=== PATIENT | female | born 1980 | race American Indian/Alaskan Native ===

== ENCOUNTER 2017-07-13 22:53 | Emergency (ER) | payer MEDICAID ==
[2017-07-13] MEDS ORDERED: PROVENTIL IH ONE ×3 (23:05→23:54)
--- NOTE | 2017-07-14 00:30 | Emergency Department Report ---
ED Shortness of Breath HPI - General Chief Complaint: Dyspnea/Respdistress Stated Complaint: SOB/16 WEEKS PREG Time Seen by Provider: 07/13/17 23:25 Source: patient Mode of arrival: Ambulatory Limitations: No Limitations - History of Present Illness Initial Comments: Patient is a 36-year-old at 14 weeks female past medical history of asthma she states that she is short of breath today. She states that her shortness of breath started about 2 hours ago her symptoms are moderate there worse with exertion and better with rest. She states that she used some of her inhalers but hasn't helped her asthma. Patient states that her shortness of breath feels like her asthma. Patient denies having any leg swelling. Patient denies having any vaginal discharge or any vaginal bleeding. - Related Data Previous Rx's Medication Instructions Recorded Last Taken Type ALBUTEROL NEB's [Proventil 0.083% 2.5 mg IH Q4-6H PRN #60 ml 06/17/14 Unknown Rx NEBS] Fluticasone/Czlvwfdmpx55/21Mcg 1 puff IH BID #1 puff 06/17/14 Unknown Rx [Advair HFA 45/21 mcg] Prednisone [Prednisone 10 mg 10 mg PO .TAPER #1 tab.ds.pk 06/17/14 Unknown Rx (6-Day Pack, 21 Tabs)] Promethazine [Phenergan] 25 mg PO Q6H PRN #10 tablet 06/17/14 Unknown Rx HYDROcodone/APAP 10-325 [[place] 1 each PO Q4-6H PRN #20 tablet 12/01/15 Unknown Rx 10/325] Ibuprofen [Motrin] 600 mg PO Q8H PRN #21 tablet 06/08/16 Unknown Rx Oxycodone HCl/Acetaminophen 1 each PO Q6HR PRN #20 tablet 06/08/16 Unknown Rx [Percocet 7.5/325 mg] ALBUTEROL Inhaler [ProAir HFA 2 puff IH QID PRN #1 inhalation 06/23/16 Unknown Rx Inhaler] ALBUTEROL NEB's [Proventil 0.083% 2.5 mg IH Q4H #1 box 06/23/16 Unknown Rx NEBS] Azithromycin [Zithromax] 250 mg PO QAM #6 tablet 06/23/16 Unknown Rx Ipratropium [Atrovent] 0.5 mg IH Q4H #1 box 06/23/16 Unknown Rx methylPREDNISolone [Medrol] 4 mg PO QAM #1 pack 06/23/16 Unknown Rx ALBUTEROL Inhaler [ProAir HFA 2 puff IH QID PRN #1 inhalation 07/14/17 Unknown Rx Inhaler] predniSONE [Deltasone] 20 mg PO BID #10 tablet 07/14/17 Unknown Rx Allergies Allergy/AdvReac Type Severity Reaction Status Date / Time amoxicillin Allergy Hives Verified 05/01/16 11:39 Penicillins Allergy Hives Verified 05/01/16 11:39 ED Review of Systems ROS: Stated complaint: SOB/16 WEEKS PREG Other details as noted in HPI Constitutional: denies: chills, fever Eyes: denies: eye pain, eye discharge, vision change ENT: denies: ear pain, throat pain Respiratory: shortness of breath, SOB at rest. denies: cough, wheezing Cardiovascular: denies: chest pain, palpitations Endocrine: no symptoms reported Gastrointestinal: denies: abdominal pain, nausea, diarrhea Genitourinary: denies: urgency, dysuria, discharge Musculoskeletal: denies: back pain, joint swelling, arthralgia Skin: denies: rash, lesions Neurological: denies: headache, weakness, paresthesias Psychiatric: denies: anxiety, depression Hematological/Lymphatic: denies: easy bleeding, easy bruising ED Past Medical Hx - Past Medical History Previous Medical History?: Yes Hx Hypertension: No Hx Psychiatric Treatment: No Hx Asthma: Yes Additional medical history: BRONCHITIS - Surgical History Past Surgical History?: Yes Additional Surgical History: - Social History Smoking Status: Former Smoker Substance Use Type: None - Medications Home Medications: Home Medications Medication Instructions Recorded Confirmed Last Taken Type ALBUTEROL NEB's [Proventil 0.083% 2.5 mg IH Q4-6H PRN #60 ml 06/17/14 06/22/16 Unknown Rx NEBS] Fluticasone/Uzhknbumom20/21Mcg 1 puff IH BID #1 puff 06/17/14 06/22/16 Unknown Rx [Advair HFA 45/21 mcg] Prednisone [Prednisone 10 mg 10 mg PO .TAPER #1 tab.ds.pk 06/17/14 06/22/16 Unknown Rx (6-Day Pack, 21 Tabs)] Promethazine [Phenergan] 25 mg PO Q6H PRN #10 tablet 06/17/14 06/22/16 Unknown Rx HYDROcodone/APAP 10-325 [[place] 1 each PO Q4-6H PRN #20 tablet 12/01/15 06/22/16 Unknown Rx 10/325] Ibuprofen [Motrin] 600 mg PO Q8H PRN #21 tablet 06/08/16 06/22/16 Unknown Rx Oxycodone HCl/Acetaminophen 1 each PO Q6HR PRN #20 tablet 06/08/16 06/22/16 Unknown Rx [Percocet 7.5/325 mg] ALBUTEROL Inhaler [ProAir HFA 2 puff IH QID PRN #1 inhalation 06/23/16 Unknown Rx Inhaler] ALBUTEROL NEB's [Proventil 0.083% 2.5 mg IH Q4H #1 box 06/23/16 Unknown Rx NEBS] Azithromycin [Zithromax] 250 mg PO QAM #6 tablet 06/23/16 Unknown Rx Ipratropium [Atrovent] 0.5 mg IH Q4H #1 box 06/23/16 Unknown Rx methylPREDNISolone [Medrol] 4 mg PO QAM #1 pack 06/23/16 Unknown Rx ALBUTEROL Inhaler [ProAir HFA 2 puff IH QID PRN #1 inhalation 07/14/17 Unknown Rx Inhaler] predniSONE [Deltasone] 20 mg PO BID #10 tablet 07/14/17 Unknown Rx ED Physical Exam - General Limitations: No Limitations General appearance: alert, in no apparent distress - Head Head exam: Present: atraumatic, normocephalic - Eye Eye exam: Present: normal appearance - ENT ENT exam: Present: mucous membranes moist - Neck Neck exam: Present: normal inspection - Respiratory Respiratory exam: Present: wheezes (wheezing bilaterally). Absent: respiratory distress - Cardiovascular Cardiovascular Exam: Present: regular rate, normal rhythm. Absent: systolic murmur, diastolic murmur, rubs, gallop - GI/Abdominal GI/Abdominal exam: Present: soft, normal bowel sounds - Extremities Exam Extremities exam: Present: normal inspection - Back Exam Back exam: Present: normal inspection - Neurological Exam Neurological exam: Present: alert, oriented X3, CN II-XII intact - Psychiatric Psychiatric exam: Present: normal affect, normal mood - Skin Skin exam: Present: warm, dry, intact, normal color. Absent: rash ED Course Vital Signs 07/13/17 07/13/17 07/13/17 22:59 23:04 23:10 Temperature 98.8 F Pulse Rate 121 H 112 H 113 H Pulse Rate [ Posterior Bilateral] Respiratory 32 H 29 H 25 H Rate Respiratory Rate [Posterior Bilateral] Blood Pressure 116/78 Blood Pressure 136/85 [Right] O2 Sat by Pulse 94 99 99 Oximetry 07/13/17 07/13/17 07/13/17 23:13 23:15 23:20 Temperature 98.7 F Pulse Rate 129 H Pulse Rate [ Posterior Bilateral] Respiratory 26 H 20 Rate Respiratory Rate [Posterior Bilateral] Blood Pressure 125/71 Blood Pressure [Right] O2 Sat by Pulse 99 100 Oximetry 07/13/17 07/13/17 07/13/17 23:30 23:40 23:50 Temperature Pulse Rate 127 H 111 H 120 H Pulse Rate [ Posterior Bilateral] Respiratory 28 H 30 H 27 H Rate Respiratory Rate [Posterior Bilateral] Blood Pressure 125/71 131/86 131/86 Blood Pressure [Right] O2 Sat by Pulse 98 99 99 Oximetry 07/14/17 07/14/17 07/14/17 00:00 00:10 00:20 Temperature Pulse Rate 114 H 107 H 141 H Pulse Rate [ Posterior Bilateral] Respiratory 26 H 25 H 29 H Rate Respiratory Rate [Posterior Bilateral] Blood Pressure 120/92 120/92 126/63 Blood Pressure [Right] O2 Sat by Pulse 97 96 Oximetry 07/14/17 07/14/17 07/14/17 00:30 00:34 00:35 Temperature Pulse Rate 114 H 128 H Pulse Rate [ 118 H Posterior Bilateral] Respiratory 23 22 Rate Respiratory 18 Rate [Posterior Bilateral] Blood Pressure 124/72 124/72 Blood Pressure [Right] O2 Sat by Pulse 100 99 Oximetry 07/14/17 07/14/17 07/14/17 00:40 00:50 01:00 Temperature Pulse Rate 116 H 111 H 112 H Pulse Rate [ Posterior Bilateral] Respiratory 22 25 H 28 H Rate Respiratory Rate [Posterior Bilateral] Blood Pressure 124/72 109/76 114/77 Blood Pressure [Right] O2 Sat by Pulse 99 100 98 Oximetry 07/14/17 07/14/17 07/14/17 01:10 01:20 01:30 Temperature Pulse Rate 117 H 99 H 112 H Pulse Rate [ Posterior Bilateral] Respiratory 25 H 26 H 29 H Rate Respiratory Rate [Posterior Bilateral] Blood Pressure 114/77 128/71 126/74 Blood Pressure [Right] O2 Sat by Pulse 99 100 100 Oximetry 07/14/17 07/14/17 01:40 01:50 Temperature Pulse Rate 98 H 99 H Pulse Rate [ Posterior Bilateral] Respiratory 26 H 26 H Rate Respiratory Rate [Posterior Bilateral] Blood Pressure 126/74 129/77 Blood Pressure [Right] O2 Sat by Pulse 100 100 Oximetry - Reevaluation(s) Reevaluation #1: 07/14/17 02:34 Patient is feeling better after albuterol nebulizing treatment. I will send patient home with albuterol inhaler and prednisone. ED Medical Decision Making - Lab Data Result diagrams: 07/14/17 01:28 07/14/17 01:28 Lab Results 07/14/17 07/14/17 Range/Units 01:28 01:28 WBC 8.6 (4.5-11.0) K/mm3 RBC 4.54 (3.65-5.03) M/mm3 Hgb 10.9 (10.1-14.3) gm/dl Hct 33.1 (30.3-42.9) % MCV 73 L (79-97) fl MCH 24 L (28-32) pg MCHC 33 (30-34) % RDW 19.9 H (13.2-15.2) % Plt Count 175 (140-440) K/mm3 Lymph % (Auto) 25.7 (13.4-35.0) % [place] % (Auto) 9.9 H (0.0-7.3) % Eos % (Auto) 6.2 H (0.0-4.3) % Baso % (Auto) 0.3 (0.0-1.8) % Lymph # 2.2 (1.2-5.4) K/mm3 [place] # 0.8 (0.0-0.8) K/mm3 Eos # 0.5 H (0.0-0.4) K/mm3 Baso # 0.0 (0.0-0.1) K/mm3 Seg Neutrophils % 57.9 (40.0-70.0) % Seg Neutrophils # 5.0 (1.8-7.7) K/mm3 Sodium 139 (137-145) mmol/L Potassium 3.6 (3.6-5.0) mmol/L Chloride 100.7 (98-107) mmol/L Carbon Dioxide 23 (22-30) mmol/L Anion Gap 19 mmol/L BUN 8 (7-17) mg/dL Creatinine 0.5 L (0.7-1.2) mg/dL Estimated GFR > 60 ml/min BUN/Creatinine Ratio 16.00 % Glucose 112 H (65-100) mg/dL Calcium 8.7 (8.4-10.2) mg/dL - Medical Decision Making Chief medical diagnosis: Asthma exacerbation Differential multiple diagnosis: Bronchitis, allergic rhinitis, metabolic abnormality I will give patient albuterol and methylprednisolone IV I will also get CBC and CMP. Patient is feeling better also and patient home with prescription for albuterol and prednisone. Additional verbal discharge instructions were given. Critical care attestation.: If time is entered above; I have spent that time in minutes in the direct care of this critically ill patient, excluding procedure time. ED Disposition Clinical Impression: Asthma exacerbation Qualifiers: Asthma severity: moderate persistent Qualified Code(s): J45.41 - Moderate persistent asthma with (acute) exacerbation Disposition: DC-01 TO HOME OR SELFCARE Is pt being admited?: No Does the pt Need Aspirin: No Condition: Stable Instructions: Asthma (ED) Prescriptions: ALBUTEROL Inhaler [ProAir HFA Inhaler] 2 puff IH QID PRN #1 inhalation PRN Reason: Shortness Of Breath predniSONE [Deltasone] 20 mg PO BID #10 tablet Referrals: PRIMARY CARE, [Primary Care Provider] - 3-5 Days Time of Disposition: 02:37
[2017-07-14 01:51] LABS: Basophils % (Auto) 0.3 % (0.0-1.8); Eosinophils % (Auto) 6.2 % (0.0-4.3); Hematocrit 33.1 % (30.3-42.9); Hemoglobin 10.9 gm/dl (10.1-14.3); Mean Corpuscular HGB Conc 33 % (30-34); Mean Corpuscular Hemoglobin 24 pg (28-32); Mean Corpuscular Volume 73 fl (79-97); Platelet Count 175 K/mm3 (140-440); Red Blood Count 4.54 M/mm3 (3.65-5.03); Red Cell Distribution Width 19.9 % (13.2-15.2); White Blood Count 8.6 K/mm3 (4.5-11.0)
[2017-07-14] MEDS: PROVENTIL IH ONE ×2 (02:04→02:05)
[2017-07-14 02:05] LABS: Anion Gap 19 mmol/L; Blood Urea Nitrogen 8 mg/dL (7-17); Calcium 8.7 mg/dL (8.4-10.2); Carbon Dioxide 23 mmol/L (22-30); Chloride 100.7 mmol/L (98-107); Glucose 112 mg/dL (65-100); Potassium 3.6 mmol/L (3.6-5.0); Sodium 139 mmol/L (137-145)
[2017-07-14 02:53] VITALS: BP 130/75
== END 2017-07-14 02:54 | disposition home or self-care (01) ==
LOC: ED 22:53
DX: J45.41 Moderate persistent asthma with (acute) exacerbation (principal); Z87.891 Personal history of nicotine dependence; Z88.1 Allergy status to other antibiotic agents; Z88.0 Allergy status to penicillin
CPT/HCPCS: 36415; 80048; 85025; 94644; 96374; 99284; J2930

== ENCOUNTER 2017-07-31 12:27 | Emergency (ER) | payer MEDICAID ==
[2017-07-31] MEDS ORDERED: DUONEB *Not for PRN Use IH ONE ×2 (12:37→13:14)
[2017-07-31] MEDS ORDERED: PROVENTIL IH ONE (15:35)
--- NOTE | 2017-07-31 17:22 | Emergency Department Report ---
HPI - General Chief Complaint: Adult Asthma Time Seen by Provider: 07/31/17 15:35 - HPI HPI: 36-year-old -[place] female at 17 weeks is reviewed today with wheezing. Patient states she has long-standing history of asthma for which she takes albuterol inhalers, nebulizers at home. She has been refusing really bad for 2 days worse today. Patient's symptoms are accompanied by cough, runny nose but no vomiting or fever. Patient gets most of her care at [facility] and follows up there also for her [facility] [employer] needs. AB patient received albuterol inhaler and symptoms are much improved. Patient recently was on steroid pack, and Z-Sukumar for bronchitis. ED Past Medical Hx - Past Medical History Hx Hypertension: No Hx Psychiatric Treatment: No Hx Asthma: Yes Additional medical history: BRONCHITIS - Surgical History Additional Surgical History: - Family History Family history: hypertension - Social History Smoking Status: Never Smoker Substance Use Type: None - Medications Home Medications: Home Medications Medication Instructions Recorded Confirmed Last Taken Type Fluticasone/Iwjvnmiwsg92/21Mcg 1 puff IH BID #1 puff 06/17/14 07/31/17 07/31/17 Rx [Advair HFA 45/21 mcg] ALBUTEROL NEB's [Proventil 0.083% 2.5 mg IH Q4H #1 box 06/23/16 07/31/17 Rx NEBS] Ipratropium [Atrovent] 0.5 mg IH Q4H #1 box 06/23/16 07/31/17 07/31/17 Rx ALBUTEROL Inhaler [ProAir HFA 2 puff IH QID PRN #1 inhalation 07/14/17 07/31/17 07/31/17 Rx Inhaler] Fluticasone/Salmeterol [Advair 0 each INHALATION BID #1 blst.w.dev 07/31/17 Unknown Rx 250-50 Diskus] ED Review of Systems ROS: Stated complaint: ASTHMA Other details as noted in HPI Comment: All other systems reviewed and negative Eyes: as per HPI ENT: throat pain, congestion Respiratory: cough, shortness of breath, wheezing Cardiovascular: as per HPI Physical Exam - Physical Exam Vital Signs: Vital Signs 07/31/17 07/31/17 07/31/17 12:32 15:02 15:41 Temperature 98.1 F Pulse Rate 111 H 85 Pulse Rate [ 89 Posterior Bilateral Throughout] Respiratory 26 H 20 Rate Respiratory 20 Rate [Posterior Bilateral Throughout] Blood Pressure 135/81 Blood Pressure 137/60 [Right] O2 Sat by Pulse 93 96 Oximetry 07/31/17 16:18 Temperature Pulse Rate Pulse Rate [ 112 H Posterior Bilateral Throughout] Respiratory Rate Respiratory 20 Rate [Posterior Bilateral Throughout] Blood Pressure Blood Pressure [Right] O2 Sat by Pulse Oximetry Physical Exam: Physical Exam: - General Limitations: No Limitations General appearance: alert, in no apparent distress - Head Head exam: Present: atraumatic, normocephalic - Eye Eye exam: Present: normal appearance - ENT ENT exam: Present: mucous membranes moist - Neck Neck exam: Present: normal inspection - Respiratory Respiratory exam: Present: Expiratory wheezing on both lung Absent: respiratory distress - Cardiovascular Cardiovascular Exam: Present: normal rhythm. Absent: systolic murmur, diastolic murmur, rubs, gallop - GI/Abdominal GI/Abdominal exam: Present: soft, normal bowel sounds - Extremities Exam Extremities exam: Present: normal inspection - Back Exam Back exam: Present: normal inspection - Neurological Exam Neurological exam: Present: alert, oriented X3, - Skin Skin exam: Present: warm, dry, intact, normal color. Absent: rash ED Course Vital Signs 07/31/17 07/31/17 07/31/17 12:32 15:02 15:41 Temperature 98.1 F Pulse Rate 111 H 85 Pulse Rate [ 89 Posterior Bilateral Throughout] Respiratory 26 H 20 Rate Respiratory 20 Rate [Posterior Bilateral Throughout] Blood Pressure 135/81 Blood Pressure 137/60 [Right] O2 Sat by Pulse 93 96 Oximetry 07/31/17 16:18 Temperature Pulse Rate Pulse Rate [ 112 H Posterior Bilateral Throughout] Respiratory Rate Respiratory 20 Rate [Posterior Bilateral Throughout] Blood Pressure Blood Pressure [Right] O2 Sat by Pulse Oximetry Critical care attestation.: If time is entered above; I have spent that time in minutes in the direct care of this critically ill patient, excluding procedure time. ED Disposition Clinical Impression: Asthma exacerbation Disposition: DC-01 TO HOME OR SELFCARE Is pt being admited?: No Does the pt Need Aspirin: No Condition: Stable Prescriptions: Fluticasone/Salmeterol [Advair 250-50 Diskus] 0 each INHALATION BID #1 blst.w.dev Referrals: PRIMARY CARE, [Primary Care Provider] - 3-5 Days
[2017-07-31 18:50] VITALS: BP 149/84
== END 2017-07-31 18:50 | disposition home or self-care (01) ==
LOC: ED 12:27
DX: O99.512 Diseases of the respiratory system complicating pregnancy, second trimester (principal); J45.901 Unspecified asthma with (acute) exacerbation; Z88.0 Allergy status to penicillin; Z88.1 Allergy status to other antibiotic agents
CPT/HCPCS: 94640; 96374; 99283; J2930

== ENCOUNTER 2017-11-18 14:39 | Emergency (ER) | payer MEDICAID ==
[2017-11-18 15:11] VITALS: BP 114/68
== END 2017-11-18 23:30 | disposition left against medical advice (07) ==
LOC: ED 14:39
DX: R07.9 Chest pain, unspecified (principal); Z53.21 Procedure and treatment not carried out due to patient leaving prior to being seen by health care provider
CPT/HCPCS: 93005; 93010

== ENCOUNTER 2018-04-13 02:05 | Emergency (ER) | payer MEDICAID ==
[2018-04-13] MEDS ORDERED: DUONEB *Not for PRN Use IH ONE (02:24)
[2018-04-13] MEDS ORDERED: TYLENOL ONE (03:01)
[2018-04-13] MEDS ORDERED: TYLENOL PO ONE (03:04)
[2018-04-13] MEDS ORDERED: PROVENTIL IH ONE (03:16)
[2018-04-13] MEDS ORDERED: ATROVENT IH ONE (03:16)
[2018-04-13] MEDS ORDERED: MAGNESIUM SULFATE 2GM/50ML 2 GM/50 ML BAG IV ONE (03:22)
--- NOTE | 2018-04-13 03:22 | Emergency Department Report ---
Chief Complaint: Adult Asthma Stated Complaint: , SOB Time Seen by Provider: 04/13/18 03:20 - HPI History of Present Illness: Patient anterior arch area reports that she is having an asthma exacerbation. She takes albuterol for asthma and said that she had never been intubated but has been in emergency room within the last 3 months for asthma exacerbation. Patient reports that she is in early and has not started care. She reports wheezing and coughing and shortness of breath. Patient received DuoNeb 1 treatment without any relief of wheezing. Vision denies any abdominal or back pain. Denies any vaginal bleeding or discharge. - ROS Review of Systems: All systems are negative unless stated in HPI above. Positive wheezing, positive shortness of breath positive cough . Negative fever or chills, negative nausea or vomiting. Negative abdominal pain, negative vaginal bleeding , negative urinary burning frequency or urgency and negative back pain. - Exam Vital Signs: Vital Signs 04/13/18 04/13/18 04/13/18 02:23 03:06 03:09 Temperature 98.3 F Pulse Rate 107 H 103 H Respiratory 24 18 20 Rate Blood Pressure 174/102 Blood Pressure 131/94 [Left] O2 Sat by Pulse 95 Oximetry Physical Exam: Gen.: This is a 37-year-old female that is in mild distress from asthma exacerbation. Lungs: Patient with widespread wheezing throughout lung fisher, dry cough and increased work of breathing. No chest wall tenderness CV: Tachycardic, regular rhythm, no murmur MSE screening note: Focused history and physical exam performed. Due to findings the following was ordered: ED Medical Decision Making - Medical Decision Making Patient was screened by [facility] in triage area and to go to the main side for management by medical doctor. Patient she is already received DuoNeb 1 without any relief of asthma symptoms and albuterol 5 mg with Atrovent 0.5 mg to be given. I collaborated with Dr. Francois who wants patient to have Solu- Medrol 125 milligrams IV, and patient also to start an magnesium IV. tests ordered. Patient is stable at present and to be seen by M.D. ED Disposition for MSE Condition: Stable
--- NOTE | 2018-04-13 08:38 | Emergency Department Report ---
ED Asthma HPI - General Chief Complaint: Adult Asthma Stated Complaint: , SOB Time Seen by Provider: 04/13/18 03:20 Source: patient Mode of arrival: Ambulatory Limitations: No Limitations - History of Present Illness Initial Comments: This is a 37-year-old female nontoxic, well nourished in appearance, no acute signs of distress presents to the ED with c/o of asthma exacerbation. Patient stated that throughout the day or wheezing increased and she became short of breath. Patient denies any hemoptysis, fever, chills, nausea, vomiting, chest pain, short of breath, headache, stiff neck, numbness or tingling. Patient denies any recent travels, long car rides or recent hospital stays. Patient denies any calf pain or calf tenderness. Patient denies any cough. Patient states allergies to penicillin. Past medical history includes asthma. MD Complaint: "asthma attack", shortness of breath, wheezing -: days(s) (1) Asthma History: childhood onset Severity: mild Context: none known Associated Symptoms: none - Related Data Current Asthma Therapy: none Previous Rx's Medication Instructions Recorded Last Taken Type Fluticasone/Huvjkunmqi63/21Mcg 1 puff IH BID #1 puff 06/17/14 07/31/17 Rx [Advair HFA 45/21 mcg] ALBUTEROL NEB's [Proventil 0.083% 2.5 mg IH Q4H #1 box 06/23/16 07/31/17 Rx NEBS] Ipratropium [Atrovent] 0.5 mg IH Q4H #1 box 06/23/16 07/31/17 Rx ALBUTEROL Inhaler [ProAir HFA 2 puff IH QID PRN #1 inhalation 07/14/17 07/31/17 Rx Inhaler] Fluticasone/Salmeterol [Advair 0 each INHALATION BID #1 blst.w.dev 07/31/17 Unknown Rx 250-50 Diskus] ALBUTEROL Inhaler [ProAir HFA 2 puff IH QID PRN #1 inhalation 04/13/18 Unknown Rx Inhaler] Prednisone [predniSONE 10 mg 10 mg PO .TAPER #1 tab.ds.pk 04/13/18 Unknown Rx (6-Day Pack, 21 Tabs)] Allergies Allergy/AdvReac Type Severity Reaction Status Date / Time amoxicillin Allergy Hives Verified 05/01/16 11:39 Penicillins Allergy Hives Verified 05/01/16 11:39 ED Review of Systems ROS: Stated complaint: , SOB Other details as noted in HPI Constitutional: denies: chills, fever Eyes: denies: eye pain, eye discharge, vision change ENT: denies: ear pain, throat pain Respiratory: shortness of breath, wheezing. denies: cough Cardiovascular: denies: chest pain, palpitations Endocrine: no symptoms reported Gastrointestinal: denies: abdominal pain, nausea, diarrhea Genitourinary: denies: urgency, dysuria, discharge Musculoskeletal: denies: back pain, joint swelling, arthralgia Skin: denies: rash, lesions Neurological: denies: headache, weakness, paresthesias Psychiatric: denies: anxiety, depression Hematological/Lymphatic: denies: easy bleeding, easy bruising ED Past Medical Hx - Past Medical History Previous Medical History?: Yes Hx Hypertension: No Hx Psychiatric Treatment: No Hx Asthma: Yes Additional medical history: BRONCHITIS - Surgical History Past Surgical History?: No Additional Surgical History: - Social History Smoking Status: Never Smoker Substance Use Type: None - Medications Home Medications: Home Medications Medication Instructions Recorded Confirmed Last Taken Type Fluticasone/Hixgsdqurh47/21Mcg 1 puff IH BID #1 puff 06/17/14 07/31/17 07/31/17 Rx [Advair HFA 45/21 mcg] ALBUTEROL NEB's [Proventil 0.083% 2.5 mg IH Q4H #1 box 06/23/16 07/31/17 Rx NEBS] Ipratropium [Atrovent] 0.5 mg IH Q4H #1 box 06/23/16 07/31/17 07/31/17 Rx ALBUTEROL Inhaler [ProAir HFA 2 puff IH QID PRN #1 inhalation 07/14/17 07/31/17 07/31/17 Rx Inhaler] Fluticasone/Salmeterol [Advair 0 each INHALATION BID #1 blst.w.dev 07/31/17 Unknown Rx 250-50 Diskus] ALBUTEROL Inhaler [ProAir HFA 2 puff IH QID PRN #1 inhalation 04/13/18 Unknown Rx Inhaler] Prednisone [predniSONE 10 mg 10 mg PO .TAPER #1 tab.ds.pk 04/13/18 Unknown Rx (6-Day Pack, 21 Tabs)] ED Physical Exam - General Limitations: No Limitations General appearance: alert, in no apparent distress - Head Head exam: Present: atraumatic, normocephalic - Eye Eye exam: Present: normal appearance Pupils: Present: normal accommodation - ENT ENT exam: Present: normal exam, mucous membranes moist - Neck Neck exam: Present: normal inspection, full ROM. Absent: tenderness, meningismus, lymphadenopathy - Respiratory Respiratory exam: Present: normal lung sounds bilaterally, wheezes (bilateral upper and lower lobes). Absent: respiratory distress, rales, rhonchi, stridor, chest wall tenderness, accessory muscle use, decreased breath sounds, prolonged expiratory - Cardiovascular Cardiovascular Exam: Present: regular rate, normal rhythm, tachycardia. Absent : irregular rhythm, systolic murmur, diastolic murmur, rubs, gallop - GI/Abdominal GI/Abdominal exam: Present: soft, normal bowel sounds. Absent: distended, tenderness, guarding, rebound, rigid, diminished bowel sounds - Rectal Rectal exam: Present: deferred - Extremities Exam Extremities exam: Present: normal inspection, full ROM, normal capillary refill - Back Exam Back exam: Present: normal inspection, full ROM - Neurological Exam Neurological exam: Present: alert, oriented X3, normal gait - Psychiatric Psychiatric exam: Present: normal affect, normal mood - Skin Skin exam: Present: warm, dry, intact, normal color. Absent: rash ED Course Vital Signs 04/13/18 04/13/18 04/13/18 02:23 03:06 03:09 Temperature 98.3 F Pulse Rate 107 H 103 H Pulse Rate [ Posterior Bilateral Throughout] Respiratory 24 18 20 Rate Respiratory Rate [Posterior Bilateral Throughout] Blood Pressure 174/102 Blood Pressure 131/94 [Left] O2 Sat by Pulse 95 Oximetry 04/13/18 04/13/18 04/13/18 03:38 03:55 04:06 Temperature Pulse Rate Pulse Rate [ 104 H 101 H Posterior Bilateral Throughout] Respiratory 18 Rate Respiratory 22 20 Rate [Posterior Bilateral Throughout] Blood Pressure Blood Pressure [Left] O2 Sat by Pulse Oximetry - Reevaluation(s) Reevaluation #1: 04/13/18 08:36 Patient is speaking in full sentences with no signs of distress noted. ED Medical Decision Making - Medical Decision Making This is a 37-year-old female that presents with asthma exacerbation. Patient is stable and was examined by me. I ordered a chest x-ray but patient refused and stated she has to go home because she works at 10 AM. Prior to my interview the patient did receive breathing treatments,magnesium sulfate IV and steroids in the ED which patient the symptoms has decreased. But upon examination the patient still does have mild wheezing upon auscultation posttreatment. I educated and instructed patient of my concerns about symptoms and worsening and I encouraged patient to have further workup and possible admission if not resolved the patient refused and signed the AMA form. Patient is discharged with albuterol and prednisone. Patient was referred to Follow-up with a primary care doctor in 3-5 days or if symptoms worsen and continue return to emergency room as soon as possible. At time of signing AMA, the patient does not seem toxic or ill in appearance. No acute signs of distress noted. Patient agrees to treatment plan of care. No further questions noted by the patient. This chart is dictated with using [employer] Critical care attestation.: If time is entered above; I have spent that time in minutes in the direct care of this critically ill patient, excluding procedure time. ED Disposition Clinical Impression: Asthma exacerbation Qualifiers: Asthma severity: mild Asthma persistence: intermittent Qualified Code(s): J45.21 - Mild intermittent asthma with (acute) exacerbation Disposition: 07 LEFT AGAINST MED ADVICE Is pt being admited?: No Does the pt Need Aspirin: No Condition: Stable Instructions: Asthma (ED), Prednisone (By mouth), Albuterol (By breathing) Additional Instructions: Follow-up with a primary care doctor in 3-5 days or if symptoms worsen and continue return to emergency room as soon as possible. Prescriptions: ALBUTEROL Inhaler [ProAir HFA Inhaler] 2 puff IH QID PRN #1 inhalation PRN Reason: Shortness Of Breath Prednisone [predniSONE 10 mg (6-Day Pack, 21 Tabs)] 10 mg PO .TAPER #1 tab.ds.pk Referrals: PRIMARY CARE, [Primary Care Provider] - 3-5 Days MINESH BAXTER MD [Staff Physician] - 3-5 Days [facility] [Outside] - 3-5 Days [facility] [Outside] - 3-5 Days Forms: Work/School Release Form(ED)
[2018-04-13 08:50] VITALS: BP 132/84
== END 2018-04-13 08:50 | disposition left against medical advice (07) ==
LOC: ED 02:05
DX: J45.901 Unspecified asthma with (acute) exacerbation (principal); Z88.1 Allergy status to other antibiotic agents; Z88.0 Allergy status to penicillin
CPT/HCPCS: 36415; 84703; 94640; 96365; 96375; 99284; J2930; J3475

== ENCOUNTER 2018-06-18 23:24 | Emergency (ER) | payer MEDICAID ==
[2018-06-18] MEDS ORDERED: DUONEB *Not for PRN Use IH ONE ×2 (23:27→23:46)
[2018-06-18] MEDS ORDERED: TYLENOL PO ONE (23:47)
[2018-06-19 00:18] LABS: HCG Qualitative,Urine Negative (Negative)
--- NOTE | 2018-06-19 00:43 | XRay Report ---
FINAL REPORT EXAM: XR CHEST ROUTINE 2V HISTORY: cough TECHNIQUE: PA and lateral views of the chest were submitted. FINDINGS: The heart size and mediastinum appear normal. The lungs are clear. Pleural fluid is not seen. The skeletal structures reveal a mild dextroscoliosis of the thoracic spine. IMPRESSION: No acute cardiopulmonary process.
[2018-06-19] MEDS ORDERED: MAGNESIUM SULFATE 2GM/50ML 2 GM/50 ML BAG IV ONE (01:22)
--- NOTE | 2018-06-19 01:30 | Emergency Department Report ---
ED Asthma HPI - General Chief Complaint: Adult Asthma Stated Complaint: ASTHMA Time Seen by Provider: 06/19/18 01:26 Source: patient Mode of arrival: Ambulatory Limitations: No Limitations - History of Present Illness Initial Comments: Patient is a 37-year-old female that presents with asthma symptoms since Wednesday. Patient complains of cough and wheezing and shortness of breath that are getting worse. Patient states that she was treated at the local urgent care on but ran out of her albuterol inhaler. Patient states that the cough is productive with a yellow sputum. MD Complaint: "asthma attack", shortness of breath, wheezing -: Sudden Asthma History: childhood onset, history of frequent attac, history of prior ED visit Severity: severe Context: recent URI, ran out of meds Associated Symptoms: productive cough. denies: dry cough, fever, chest pain, hemoptysis, leg edema, syncope Treatments Prior to Arrival: inhaled bronchodilator - Related Data Current Asthma Therapy: inhaled bronchodilator Previous Rx's Medication Instructions Recorded Last Taken Type Fluticasone/Mvwekclqnh98/21Mcg 1 puff IH BID #1 puff 06/17/14 07/31/17 Rx [Advair HFA 45/21 mcg] ALBUTEROL NEB's [Proventil 0.083% 2.5 mg IH Q4H #1 box 06/23/16 07/31/17 Rx NEBS] Ipratropium [Atrovent] 0.5 mg IH Q4H #1 box 06/23/16 07/31/17 Rx ALBUTEROL Inhaler [ProAir HFA 2 puff IH QID PRN #1 inhalation 07/14/17 07/31/17 Rx Inhaler] Fluticasone/Salmeterol [Advair 0 each INHALATION BID #1 blst.w.dev 07/31/17 Unknown Rx 250-50 Diskus] ALBUTEROL Inhaler [ProAir HFA 2 puff IH QID PRN #1 inhalation 04/13/18 Unknown Rx Inhaler] Prednisone [predniSONE 10 mg 10 mg PO .TAPER #1 tab.ds.pk 04/13/18 Unknown Rx (6-Day Pack, 21 Tabs)] Allergies Allergy/AdvReac Type Severity Reaction Status Date / Time amoxicillin Allergy Hives Verified 05/01/16 11:39 Penicillins Allergy Hives Verified 05/01/16 11:39 ED Review of Systems ROS: Stated complaint: ASTHMA Other details as noted in HPI Constitutional: denies: chills, fever Eyes: denies: eye pain, eye discharge, vision change ENT: denies: ear pain, throat pain Respiratory: cough, shortness of breath, wheezing Cardiovascular: denies: chest pain, palpitations Endocrine: no symptoms reported Gastrointestinal: denies: abdominal pain, nausea, diarrhea Genitourinary: denies: urgency, dysuria, discharge Musculoskeletal: denies: back pain, joint swelling, arthralgia Skin: denies: rash, lesions Neurological: denies: headache, weakness, paresthesias Psychiatric: denies: anxiety, depression Hematological/Lymphatic: denies: easy bleeding, easy bruising ED Past Medical Hx - Past Medical History Previous Medical History?: Yes Hx Hypertension: No Hx Psychiatric Treatment: No Hx Asthma: Yes Additional medical history: BRONCHITIS - Surgical History Past Surgical History?: Yes Additional Surgical History: - Family History Family history: no significant - Social History Smoking Status: Former Smoker Substance Use Type: None - Medications Home Medications: Home Medications Medication Instructions Recorded Confirmed Last Taken Type Fluticasone/Jsvktcvhxe35/21Mcg 1 puff IH BID #1 puff 06/17/14 07/31/17 07/31/17 Rx [Advair HFA 45/21 mcg] ALBUTEROL NEB's [Proventil 0.083% 2.5 mg IH Q4H #1 box 06/23/16 07/31/17 Rx NEBS] Ipratropium [Atrovent] 0.5 mg IH Q4H #1 box 06/23/16 07/31/17 07/31/17 Rx ALBUTEROL Inhaler [ProAir HFA 2 puff IH QID PRN #1 inhalation 07/14/17 07/31/17 07/31/17 Rx Inhaler] Fluticasone/Salmeterol [Advair 0 each INHALATION BID #1 blst.w.dev 07/31/17 Unknown Rx 250-50 Diskus] ALBUTEROL Inhaler [ProAir HFA 2 puff IH QID PRN #1 inhalation 04/13/18 Unknown Rx Inhaler] Prednisone [predniSONE 10 mg 10 mg PO .TAPER #1 tab.ds.pk 04/13/18 Unknown Rx (6-Day Pack, 21 Tabs)] ED Physical Exam - General Limitations: No Limitations General appearance: alert, in distress - Head Head exam: Present: atraumatic, normocephalic - Eye Eye exam: Present: normal appearance, PERRL Pupils: Present: normal accommodation - ENT ENT exam: Present: mucous membranes moist - Neck Neck exam: Present: normal inspection - Respiratory Respiratory exam: Present: respiratory distress, wheezes - Cardiovascular Cardiovascular Exam: Present: regular rate, normal rhythm. Absent: systolic murmur, diastolic murmur, rubs, gallop - GI/Abdominal GI/Abdominal exam: Present: soft, normal bowel sounds - Extremities Exam Extremities exam: Present: normal inspection - Back Exam Back exam: Present: normal inspection - Neurological Exam Neurological exam: Present: alert, oriented X3 - Psychiatric Psychiatric exam: Present: normal affect, normal mood - Skin Skin exam: Present: warm, dry, intact, normal color. Absent: rash ED Course Vital Signs 06/18/18 06/19/18 06/19/18 23:37 01:06 01:30 Temperature 98.2 F Pulse Rate 106 H Pulse Rate [ Anterior] Respiratory 28 H Rate Respiratory Rate [Anterior] Blood Pressure 137/97 141/85 O2 Sat by Pulse 97 95 96 Oximetry 06/19/18 06/19/18 06/19/18 02:01 02:02 02:09 Temperature Pulse Rate Pulse Rate [ 81 Anterior] Respiratory 20 Rate Respiratory 19 Rate [Anterior] Blood Pressure O2 Sat by Pulse 100 98 Oximetry 06/19/18 06/19/18 06/19/18 02:25 02:30 03:00 Temperature Pulse Rate Pulse Rate [ 85 Anterior] Respiratory Rate Respiratory 24 Rate [Anterior] Blood Pressure 113/71 123/71 O2 Sat by Pulse 96 92 Oximetry 06/19/18 06/19/18 06/19/18 03:30 04:00 04:30 Temperature Pulse Rate Pulse Rate [ Anterior] Respiratory Rate Respiratory Rate [Anterior] Blood Pressure 117/81 126/72 124/77 O2 Sat by Pulse 93 92 93 Oximetry 06/19/18 06/19/18 05:00 05:30 Temperature Pulse Rate Pulse Rate [ Anterior] Respiratory Rate Respiratory Rate [Anterior] Blood Pressure 120/63 110/65 O2 Sat by Pulse 93 93 Oximetry - Reevaluation(s) Reevaluation #1: Patient improving but still wheezing. We'll consult hospitalist for admission. Patient agrees with plan of care and admission. All results discussed with patient. 06/19/18 04:00 Reevaluation #2: Hospitalist consulted for admission. Hospitalist agreed to admit. Discussed case with hospitalist, fully. Dr Bruno to assume care. 06/19/18 04:15 Reevaluation #3: Patient states she does not want to be admitted. Patient states she has kids needs to go take care of. Discussed risks with patient. Patient voiced understanding of risks. AMA signed. Patient left AGAINST MEDICAL ADVICE. 06/19/18 04:50 - Consultations Consultation #1: Hospitalist consulted for admission. Discussed case with hospitalist. Hospitalist agreed to admit. Dr Bruno to assume care. 06/19/18 04:16 ED Medical Decision Making - Lab Data Result diagrams: 06/19/18 01:52 06/19/18 01:52 - Radiology Data Radiology results: report reviewed Chest x-ray negative - Medical Decision Making She is a 37-year-old female that presents emergency room with acute asthmatic exacerbation. Patient brought in status asthmaticus. I advised patient to be admitted to the hospital for further evaluation and treatment. However, patient refused and signed out AMA. - Differential Diagnosis bronchitis. cough. asthma exac. Critical Care Time: Yes Critical care attestation.: If time is entered above; I have spent that time in minutes in the direct care of this critically ill patient, excluding procedure time. Critical Care Time: 35 minutes for cc time. ED Disposition Clinical Impression: Asthma exacerbation Qualifiers: Asthma severity: severe Asthma persistence: unspecified Qualified Code(s): J45.901 - Unspecified asthma with (acute) exacerbation Status asthmaticus Qualifiers: Asthma severity: severe Asthma persistence: unspecified Qualified Code(s): J45.902 - Unspecified asthma with status asthmaticus Disposition: LEFT AGAINST MED ADVICE Is pt being admited?: No Does the pt Need Aspirin: No Condition: Serious Referrals: PRIMARY CARE, [Primary Care Provider] - 3-5 Days Forms: AMA Form Time of Disposition: 05:05
[2018-06-19] MEDS ORDERED: PROVENTIL IH ONE (01:54)
[2018-06-19 02:10] LABS: Basophils % (Auto) 0.5 % (0.0-1.8); Eosinophils # (Auto) 0.4 K/mm3 (0.0-0.4); Eosinophils % (Auto) 5.3 % (0.0-4.3); Hematocrit 40.7 % (30.3-42.9); Hemoglobin 13.1 gm/dl (10.1-14.3); Lymphocytes # (Auto) 1.5 K/mm3 (1.2-5.4); Lymphocytes % (Auto) 19.2 % (13.4-35.0); Mean Corpuscular HGB Conc 32 % (30-34); Mean Corpuscular Volume 79 fl (79-97); Monocytes # (Auto) 0.3 K/mm3 (0.0-0.8); Monocytes % (Auto) 3.7 % (0.0-7.3); Platelet Count 207 K/mm3 (140-440); Red Blood Count 5.18 M/mm3 (3.65-5.03); Red Cell Distribution Width 14.6 % (13.2-15.2)
[2018-06-19 02:31] LABS: Mean Corpuscular Hemoglobin 25 pg (28-32)
[2018-06-19 02:32] LABS: BUN/Creatinine Ratio 14; Blood Urea Nitrogen 11 mg/dL (7-17); Calcium 9.3 mg/dL (8.4-10.2)
[2018-06-19 02:33] LABS: Hemolysis Index 15
[2018-06-19 05:37] VITALS: BP 110/65
== END 2018-06-19 05:46 | disposition left against medical advice (07) ==
LOC: ED 23:24
DX: J45.901 Unspecified asthma with (acute) exacerbation (principal); J45.902 Unspecified asthma with status asthmaticus
CPT/HCPCS: 36415; 71046; 80048; 81025; 85025; 94640; 96365; 96375; 99284; J2930; J3475

== ENCOUNTER 2018-07-21 11:18 | Emergency (ER) | payer SELFPAY ==
[2018-07-21] MEDS ORDERED: XOPENEX IH ONE (11:21)
[2018-07-21] MEDS ORDERED: SOLU-Medrol IV ONE (11:30)
[2018-07-21] MEDS ORDERED: SOLU-Medrol ONE (11:31)
--- NOTE | 2018-07-21 11:33 | Emergency Department Report ---
ED Shortness of Breath HPI - General Chief Complaint: Dyspnea/Respdistress Stated Complaint: ASTHMA Time Seen by Provider: 07/21/18 11:21 Source: patient Mode of arrival: Wheelchair Limitations: No Limitations - History of Present Illness Initial Comments: Patient is a 37-year-old female with history of asthma. Patient presented to the ER complaining of shortness of breath and wheezing for the last 3 days. Patient denied any fever, chest pain, nausea or vomiting. MD Complaint: shortness of breath, cough, "asthma attack" - Related Data Home Medications Medication Instructions Recorded Confirmed Last Taken ALBUTEROL NEB's [Proventil 0.083% 2.5 mg IH Q6H 07/21/18 07/21/18 Unknown NEBS] Previous Rx's Medication Instructions Recorded Last Taken Type ALBUTEROL Inhaler [ProAir HFA 2 puff IH QID PRN #1 inhalation 04/13/18 Unknown Rx Inhaler] Allergies Allergy/AdvReac Type Severity Reaction Status Date / Time amoxicillin Allergy Hives Verified 05/01/16 11:39 Penicillins Allergy Hives Verified 05/01/16 11:39 ED Review of Systems ROS: Stated complaint: ASTHMA Other details as noted in HPI Comment: All other systems reviewed and negative Respiratory: shortness of breath, SOB with exertion, SOB at rest, wheezing. denies: cough Cardiovascular: palpitations. denies: chest pain Gastrointestinal: denies: abdominal pain, nausea, vomiting, diarrhea, constipation, melena, hematochezia ED Past Medical Hx - Past Medical History Previous Medical History?: Yes Hx Hypertension: No Hx Psychiatric Treatment: No Hx Asthma: Yes Additional medical history: BRONCHITIS - Surgical History Past Surgical History?: Yes Additional Surgical History: - Social History Smoking Status: Never Smoker Substance Use Type: None - Medications Home Medications: Home Medications Medication Instructions Recorded Confirmed Last Taken Type ALBUTEROL Inhaler [ProAir HFA 2 puff IH QID PRN #1 inhalation 04/13/18 07/21/18 Unknown Rx Inhaler] ALBUTEROL NEB's [Proventil 0.083% 2.5 mg IH Q6H 07/21/18 07/21/18 Unknown History NEBS] ED Physical Exam - General Limitations: No Limitations General appearance: alert, in distress (moderate respiratory distress) - Head Head exam: Present: atraumatic, normocephalic, normal inspection - Eye Eye exam: Present: normal appearance, PERRL - ENT ENT exam: Present: normal exam, normal orophraynx, mucous membranes moist - Neck Neck exam: Present: normal inspection, full ROM. Absent: tenderness, meningismus, lymphadenopathy, thyromegaly - Respiratory Respiratory exam: Present: respiratory distress, wheezes, rhonchi, accessory muscle use, decreased breath sounds, prolonged expiratory. Absent: rales, stridor, chest wall tenderness - Cardiovascular Cardiovascular Exam: Present: regular rate, normal rhythm, normal heart sounds - GI/Abdominal GI/Abdominal exam: Present: soft, normal bowel sounds. Absent: distended, tenderness, guarding, rebound, rigid, organomegaly, mass, bruit, pulsatile mass , hernia - Extremities Exam Extremities exam: Present: normal inspection, full ROM, normal capillary refill - Back Exam Back exam: Present: normal inspection, full ROM. Absent: tenderness, CVA tenderness (R), CVA tenderness (L), muscle spasm, paraspinal tenderness, vertebral tenderness, rash noted - Neurological Exam Neurological exam: Present: alert, oriented X3, CN II-XII intact, normal gait, reflexes normal - Skin Skin exam: Present: warm, intact, normal color ED Course Vital Signs 07/21/18 07/21/18 07/21/18 11:19 11:20 11:30 Temperature Pulse Rate 135 H 121 H 120 H Respiratory 28 H 21 32 H Rate Blood Pressure O2 Sat by Pulse 84 96 99 Oximetry 07/21/18 07/21/18 07/21/18 11:46 12:00 13:01 Temperature Pulse Rate 129 H 135 H 135 H Respiratory 26 H 32 H 31 H Rate Blood Pressure 150/91 147/90 150/94 O2 Sat by Pulse 98 95 97 Oximetry 07/21/18 07/21/18 14:01 14:26 Temperature 99.1 F Pulse Rate 123 H Respiratory 22 Rate Blood Pressure 144/92 O2 Sat by Pulse 99 Oximetry - Reevaluation(s) Reevaluation #1: 07/21/18 13:00 Patient stated that she is feeling a little bit better but she still very tired. On exam patient has diffuse wheezing with diminished breath sound on the sides. ED Medical Decision Making - Lab Data Result diagrams: 07/21/18 11:56 07/21/18 11:25 - Medical Decision Making I discussed the patient with Dr Barton, He agreed to admit to medical service. Critical Care Time: Yes Critical care time in (mins) excluding proc time.: 30 Critical care attestation.: If time is entered above; I have spent that time in minutes in the direct care of this critically ill patient, excluding procedure time. ED Disposition Clinical Impression: Asthma exacerbation Disposition: OP ADMIT IP TO THIS HOSP Is pt being admited?: Yes Condition: Stable Referrals: PRIMARY CARE, [Primary Care Provider] - 3-5 Days
[2018-07-21 12:02] LABS: BUN/Creatinine Ratio 5; Blood Urea Nitrogen 4 mg/dL (7-17); Calcium 9.4 mg/dL (8.4-10.2); Hemolysis Index 7
[2018-07-21 12:11] LABS: Basophils # (Auto) 0.1 K/mm3 (0.0-0.1); Basophils % (Auto) 0.6 % (0.0-1.8); Eosinophils # (Auto) 0.5 K/mm3 (0.0-0.4); Hematocrit 42.6 % (30.3-42.9); Hemoglobin 13.7 gm/dl (10.1-14.3); Lymphocytes # (Auto) 2.2 K/mm3 (1.2-5.4); Lymphocytes % (Auto) 23.4 % (13.4-35.0); Mean Corpuscular HGB Conc 32 % (30-34); Mean Corpuscular Volume 78 fl (79-97); Monocytes % (Auto) 10.7 % (0.0-7.3); Platelet Count 209 K/mm3 (140-440); Red Blood Count 5.46 M/mm3 (3.65-5.03); Red Cell Distribution Width 15.8 % (13.2-15.2)
[2018-07-21] MEDS ORDERED: ATROVENT IH ONE ×2 (12:14→13:28)
[2018-07-21] MEDS ORDERED: PROVENTIL IH ONE ×4 (12:14→18:46)
[2018-07-21 12:15] LABS: Mean Corpuscular Hemoglobin 25 pg (28-32)
[2018-07-21] MEDS ORDERED: MAGNESIUM SULFATE 2GM/50ML 2 GM/50 ML BAG IV ONE (13:00)
--- NOTE | 2018-07-21 14:12 | XRay Report ---
AP CHEST: HISTORY: chest pain AP view of the chest demonstrates a normal mediastinal and cardiac contour with clear lungs and normal bony and soft tissue structures. IMPRESSION: Unremarkable AP chest. No significant change since 06/19/18.
--- NOTE | 2018-07-21 18:25 | Consultation ---
Medications and Allergies Allergies Allergy/AdvReac Type Severity Reaction Status Date / Time amoxicillin Allergy Hives Verified 05/01/16 11:39 Penicillins Allergy Hives Verified 05/01/16 11:39 Home Medications Medication Instructions Recorded Confirmed Last Taken Type ALBUTEROL Inhaler [ProAir HFA 2 puff IH QID PRN #1 inhalation 07/21/18 Unknown Rx Inhaler] ALBUTEROL NEB's [Proventil 0.083% 2.5 mg IH Q6H #1 box 07/21/18 Unknown Rx NEBS] Ciprofloxacin HCl [Ciprofloxacin 500 mg PO Q12H #10 tab 07/21/18 Unknown Rx TAB] Ipratropium [Atrovent NEB] 0.5 mg IH Q8HRT #1 box 07/21/18 Unknown Rx Prednisone [predniSONE 10 mg 10 mg PO .TAPER #1 tab.ds.pk 07/21/18 Unknown Rx (6-Day Pack, 21 Tabs)] Exam - Constitutional Vitals: Temp Pulse Resp BP Pulse Ox 98.9 F 109 H 20 134/76 95 07/21/18 16:12 07/21/18 16:12 07/21/18 16:12 07/21/18 16:01 07/21/18 16:12 Results - Labs CBC & Chem 7: 07/21/18 11:56 07/21/18 11:25 Labs: Abnormal lab results 07/21/18 07/21/18 Range/Units 11:25 11:56 RBC 5.46 H (3.65-5.03) M/mm3 MCV 78 L (79-97) fl MCH 25 L (28-32) pg RDW 15.8 H (13.2-15.2) % Barnes % (Auto) 10.7 H (0.0-7.3) % Eos % (Auto) 5.0 H (0.0-4.3) % Barnes # 1.0 H (0.0-0.8) K/mm3 Eos # 0.5 H (0.0-0.4) K/mm3 BUN 4 L (7-17) mg/dL
[2018-07-21 21:11] VITALS: BP 150/77
== END 2018-07-21 21:34 | disposition admitted as inpatient to this hospital (09) ==
LOC: ED 11:18
DX: J45.901 Unspecified asthma with (acute) exacerbation (principal); J40 Bronchitis, not specified as acute or chronic; Z88.0 Allergy status to penicillin; Z88.1 Allergy status to other antibiotic agents
CPT/HCPCS: 36415; 71045; 80048; 82803; 85025; 93005; 93010; 94640; 96365; 96375; 99291; J2930; J3475

== ENCOUNTER 2018-09-22 10:59 | Emergency (ER) | payer SELFPAY ==
[2018-09-22 11:12] VITALS: BP 101/67
--- NOTE | 2018-09-22 11:20 | Emergency Department Report ---
ED ENT HPI - General Chief complaint: Dental/Oral Stated complaint: ABSESS RT SIDE Time Seen by Provider: 09/22/18 11:15 Source: patient Mode of arrival: Ambulatory Limitations: No Limitations - History of Present Illness Initial comments: This is a 37-year-old female nontoxic, well nourished in appearance, no acute signs of distress presents to the ED with c/o of right upper toothache. Patient denies following up with a dentist. Patient describes toothache as aching level of 8 out of 10. Patient stated she believes she has an abscess. Patient denies any facial swelling. Patient denies any numbness, tingling, fever, chills, headache, stiff neck, abdominal pain, chest pain, shortness of breath. Patient stated allergies to PCN. MD complaint: tooth pain Location: tooth # 1 - pain here Severity: mild Severity scale (0 -10): 8 Quality: aching Consistency: constant Improves with: none Worsens with: none Context- Dental: history of dental caries, poor dental care Associated Symptoms: gum swelling, toothache. denies: fever, cough, pain with swallowing, sore throat, tinnitus, hearing loss, discharge from ear, rhinorrhea - Related Data Previous Rx's Medication Instructions Recorded Last Taken Type ALBUTEROL Inhaler (OR & NICU) 2 puff IH QID PRN #1 inhalation 07/21/18 Unknown Rx [ProAir HFA Inhaler] ALBUTEROL NEB's [Proventil 0.083% 2.5 mg IH Q6H #1 box 07/21/18 Unknown Rx NEBS] Ciprofloxacin HCl [Ciprofloxacin 500 mg PO Q12H #10 tab 07/21/18 Unknown Rx TAB] Ipratropium [Atrovent NEB] 0.5 mg IH Q8HRT #1 box 07/21/18 Unknown Rx Prednisone [predniSONE 10 mg 10 mg PO .TAPER #1 tab.ds.pk 07/21/18 Unknown Rx (6-Day Pack, 21 Tabs)] Acetaminophen/Codeine [Tylenol 1 tab PO Q6H PRN #12 tab 09/22/18 Unknown Rx /Codeine # 3 tab] Chlorhexidine Mouthwash [Peridex] 15 ml MM BID #1 bottle 09/22/18 Unknown Rx Clindamycin [Clindamycin CAP] 300 mg PO Q8H #21 cap 09/22/18 Unknown Rx Allergies Allergy/AdvReac Type Severity Reaction Status Date / Time amoxicillin Allergy Hives Verified 05/01/16 11:39 Penicillins Allergy Hives Verified 05/01/16 11:39 ED Dental HPI - General Chief complaint: Dental/Oral Stated complaint: ABSESS RT SIDE Time Seen by Provider: 09/22/18 11:15 Source: patient Mode of arrival: Ambulatory Limitations: No Limitations - Related Data Previous Rx's Medication Instructions Recorded Last Taken Type ALBUTEROL Inhaler (OR & NICU) 2 puff IH QID PRN #1 inhalation 07/21/18 Unknown Rx [ProAir HFA Inhaler] ALBUTEROL NEB's [Proventil 0.083% 2.5 mg IH Q6H #1 box 07/21/18 Unknown Rx NEBS] Ciprofloxacin HCl [Ciprofloxacin 500 mg PO Q12H #10 tab 07/21/18 Unknown Rx TAB] Ipratropium [Atrovent NEB] 0.5 mg IH Q8HRT #1 box 07/21/18 Unknown Rx Prednisone [predniSONE 10 mg 10 mg PO .TAPER #1 tab.ds.pk 07/21/18 Unknown Rx (6-Day Pack, 21 Tabs)] Acetaminophen/Codeine [Tylenol 1 tab PO Q6H PRN #12 tab 09/22/18 Unknown Rx /Codeine # 3 tab] Chlorhexidine Mouthwash [Peridex] 15 ml MM BID #1 bottle 09/22/18 Unknown Rx Clindamycin [Clindamycin CAP] 300 mg PO Q8H #21 cap 09/22/18 Unknown Rx Allergies Allergy/AdvReac Type Severity Reaction Status Date / Time amoxicillin Allergy Hives Verified 05/01/16 11:39 Penicillins Allergy Hives Verified 05/01/16 11:39 ED Review of Systems ROS: Stated complaint: ABSESS RT SIDE Other details as noted in HPI Constitutional: denies: chills, fever Eyes: denies: eye pain, eye discharge, vision change ENT: dental pain. denies: ear pain, throat pain Respiratory: denies: cough, shortness of breath, wheezing Cardiovascular: denies: chest pain, palpitations Endocrine: no symptoms reported Gastrointestinal: denies: abdominal pain, nausea, diarrhea Genitourinary: denies: urgency, dysuria, discharge Musculoskeletal: denies: back pain, joint swelling, arthralgia Skin: denies: rash, lesions Neurological: denies: headache, weakness, paresthesias Psychiatric: denies: anxiety, depression Hematological/Lymphatic: denies: easy bleeding, easy bruising ED Past Medical Hx - Past Medical History Hx Hypertension: No Hx Psychiatric Treatment: No Hx Asthma: Yes Additional medical history: BRONCHITIS - Surgical History Additional Surgical History: - Social History Smoking Status: Current Every Day Smoker Substance Use Type: None - Medications Home Medications: Home Medications Medication Instructions Recorded Confirmed Last Taken Type ALBUTEROL Inhaler (OR & NICU) 2 puff IH QID PRN #1 inhalation 07/21/18 Unknown Rx [ProAir HFA Inhaler] ALBUTEROL NEB's [Proventil 0.083% 2.5 mg IH Q6H #1 box 07/21/18 Unknown Rx NEBS] Ciprofloxacin HCl [Ciprofloxacin 500 mg PO Q12H #10 tab 07/21/18 Unknown Rx TAB] Ipratropium [Atrovent NEB] 0.5 mg IH Q8HRT #1 box 07/21/18 Unknown Rx Prednisone [predniSONE 10 mg 10 mg PO .TAPER #1 tab.ds.pk 07/21/18 Unknown Rx (6-Day Pack, 21 Tabs)] Acetaminophen/Codeine [Tylenol 1 tab PO Q6H PRN #12 tab 09/22/18 Unknown Rx /Codeine # 3 tab] Chlorhexidine Mouthwash [Peridex] 15 ml MM BID #1 bottle 09/22/18 Unknown Rx Clindamycin [Clindamycin CAP] 300 mg PO Q8H #21 cap 09/22/18 Unknown Rx ED Physical Exam - General Limitations: No Limitations General appearance: alert, in no apparent distress - Head Head exam: Present: atraumatic, normocephalic - Eye Eye exam: Present: normal appearance - Expanded ENT Exam Expanded Teeth exam: Present: dental caries, fractured tooth #, dental tenderness #, gingival enlargement, other (No facial swelling) 1 - Fractured, Dental Tenderness - Neck Neck exam: Present: normal inspection - Extremities Exam Extremities exam: Present: normal inspection - Back Exam Back exam: Present: normal inspection - Neurological Exam Neurological exam: Present: alert, oriented X3 - Psychiatric Psychiatric exam: Present: normal affect, normal mood - Skin Skin exam: Present: warm, dry, intact, normal color. Absent: rash ED Course Vital Signs 09/22/18 11:07 Temperature 97.7 F Pulse Rate 98 H Respiratory 16 Rate Blood Pressure 101/67 O2 Sat by Pulse 98 Oximetry - Reevaluation(s) Reevaluation #1: 09/22/18 11:20 Patient is speaking in full sentences with no signs of distress noted. Critical care attestation.: If time is entered above; I have spent that time in minutes in the direct care of this critically ill patient, excluding procedure time. ED Disposition Clinical Impression: Dental caries, Gingivitis Disposition: - TO HOME OR SELFCARE Is pt being admited?: No Does the pt Need Aspirin: No Condition: Stable Instructions: Dental Caries (ED), Gingivitis (ED), Acetaminophen/Codeine (By mouth) Additional Instructions: Follow-up with a dentist doctor in 3-5 days or if symptoms worsen and continue return to emergency room as soon as possible. Do not operate any machinery while taking Tylenol with codeine as this may cause drowsiness. Prescriptions: Acetaminophen/Codeine [Tylenol /Codeine # 3 tab] 1 tab PO Q6H PRN #12 tab PRN Reason: Pain , Severe (7-10) Chlorhexidine Mouthwash [Peridex] 15 ml MM BID #1 bottle Clindamycin [Clindamycin CAP] 300 mg PO Q8H #21 cap Referrals: PRIMARY CAREMD [Primary Care Provider] - 3-5 Days MINESH BAXTER MD [Staff Physician] - 3-5 Days [facility] [Outside] - 3-5 Days Forms: Work/School Release Form(ED)
== END 2018-09-22 11:34 | disposition home or self-care (01) ==
LOC: ED 10:59
DX: K02.9 Dental caries, unspecified (principal); K05.00 Acute gingivitis, plaque induced; J45.909 Unspecified asthma, uncomplicated; F17.200 Nicotine dependence, unspecified, uncomplicated; Z88.0 Allergy status to penicillin; Z88.1 Allergy status to other antibiotic agents; Z79.899 Other long term (current) drug therapy
CPT/HCPCS: 99282

== ENCOUNTER 2019-09-30 23:16 | Emergency (ER) | payer SELFPAY ==
[2019-10-01] MEDS ORDERED: IPRATROPIUM/ALBUTEROL SULFATE 3 ML AMPUL.NEB IH ONE ×2 (00:07→00:08)
[2019-10-01] MEDS ORDERED: methylPREDNISolone Sod Succinate 125 MG/2 ML INJ IM ONE (02:08)
[2019-10-01] MEDS ORDERED: LEVALBUTEROL 0.63 MG/3 ML NEBU IH ONE (02:08)
--- NOTE | 2019-10-01 02:08 | Emergency Department Report ---
ED Asthma HPI - General Chief Complaint: Adult Asthma Stated Complaint: ASTHMA/WHEEZING Time Seen by Provider: 10/01/19 01:21 EST Source: patient Mode of arrival: Ambulatory Limitations: No Limitations - History of Present Illness Initial Comments: Patient here for asthma attack and bronchitis and requesting refill on her medication she said she is wheezy and having difficulty with breathing. Complaint: "asthma attack", shortness of breath, wheezing Onset/Timin -: days(s) Asthma History: history of prior ED visit Severity: similar to prior Context: recent URI Associated Symptoms: dry cough Treatments Prior to Arrival: other (none) - Related Data Current Asthma Therapy: inhaled bronchodilator Previous Rx's Medication Instructions Recorded Last Taken Type Ciprofloxacin HCl [Ciprofloxacin 500 mg PO Q12H #10 tab 07/21/18 Unknown Rx TAB] Ipratropium [Atrovent NEB] 0.5 mg IH Q8HRT #1 box 07/21/18 Unknown Rx Acetaminophen/Codeine [Tylenol 1 tab PO Q6H PRN #12 tab 09/22/18 Unknown Rx /Codeine # 3 tab] Chlorhexidine Mouthwash [Peridex] 15 ml MM BID #1 bottle 09/22/18 Unknown Rx Clindamycin [Clindamycin CAP] 300 mg PO Q8H #21 cap 09/22/18 Unknown Rx ALBUTEROL Inhaler (OR & NICU) 2 puff IH Q6H PRN #1 inhalation 10/01/19 Unknown Rx [ProAir HFA Inhaler] ALBUTEROL NEB's [Proventil 0.083% 2.5 mg IH Q6H #1 box 10/01/19 Unknown Rx NEBS] Prednisone [predniSONE 10 mg 10 mg PO .TAPER #1 tab.ds.pk 10/01/19 Unknown Rx (6-Day Pack, 21 Tabs)] Allergies Allergy/AdvReac Type Severity Reaction Status Date / Time amoxicillin Allergy Hives Verified 05/01/16 11:39 Penicillins Allergy Hives Verified 05/01/16 11:39 ED Review of Systems ROS: Stated complaint: ASTHMA/WHEEZING Other details as noted in HPI Constitutional: denies: chills, fever ENT: congestion. denies: throat pain Respiratory: cough, shortness of breath, SOB with exertion. denies: SOB at rest, stridor, wheezing Cardiovascular: denies: chest pain, palpitations, dyspnea on exertion, edema, syncope, paroxysmal nocturnal dyspnea Gastrointestinal: denies: abdominal pain, nausea, vomiting Musculoskeletal: denies: back pain, joint swelling, arthralgia Skin: denies: rash Neurological: denies: headache, numbness, paresthesias, abnormal gait Psychiatric: anxiety ED Past Medical Hx - Past Medical History Previous Medical History?: Yes Hx Hypertension: No Hx Psychiatric Treatment: No Hx Asthma: Yes Additional medical history: BRONCHITIS - Surgical History Past Surgical History?: No Additional Surgical History: - Family History Family history: hypertension - Social History Smoking Status: Never Smoker Substance Use Type: None - Medications Home Medications: Home Medications Medication Instructions Recorded Confirmed Last Taken Type Ciprofloxacin HCl [Ciprofloxacin 500 mg PO Q12H #10 tab 07/21/18 Unknown Rx TAB] Ipratropium [Atrovent NEB] 0.5 mg IH Q8HRT #1 box 07/21/18 Unknown Rx Acetaminophen/Codeine [Tylenol 1 tab PO Q6H PRN #12 tab 09/22/18 Unknown Rx /Codeine # 3 tab] Chlorhexidine Mouthwash [Peridex] 15 ml MM BID #1 bottle 09/22/18 Unknown Rx Clindamycin [Clindamycin CAP] 300 mg PO Q8H #21 cap 09/22/18 Unknown Rx ALBUTEROL Inhaler (OR & NICU) 2 puff IH Q6H PRN #1 inhalation 10/01/19 Unknown Rx [ProAir HFA Inhaler] ALBUTEROL NEB's [Proventil 0.083% 2.5 mg IH Q6H #1 box 10/01/19 Unknown Rx NEBS] Prednisone [predniSONE 10 mg 10 mg PO .TAPER #1 tab.ds.pk 10/01/19 Unknown Rx (6-Day Pack, 21 Tabs)] ED Physical Exam - General Limitations: No Limitations General appearance: alert, in no apparent distress - Head Head exam: Present: atraumatic, normocephalic - Eye Eye exam: Present: normal appearance, EOMI Pupils: Present: normal accommodation - ENT ENT exam: Present: normal orophraynx, mucous membranes moist, TM's normal bilaterally, normal external ear exam, other (nasal mucosa pale and boggy with clear drainage) - Neck Neck exam: Present: normal inspection, full ROM. Absent: tenderness, lymphadenopathy - Respiratory Respiratory exam: Present: wheezes, other (dry cough). Absent: respiratory distress, rales, rhonchi, stridor, chest wall tenderness, accessory muscle use, decreased breath sounds, prolonged expiratory - Cardiovascular Cardiovascular Exam: Present: normal rhythm, tachycardia, normal heart sounds. Absent: systolic murmur, diastolic murmur - GI/Abdominal GI/Abdominal exam: Present: soft, normal bowel sounds. Absent: distended, tenderness - Extremities Exam Extremities exam: Present: normal inspection, full ROM, normal capillary refill, other (No cce. + 2 pulses in all extremities, no neurovascular compromise). Absent: tenderness, pedal edema, joint swelling - Back Exam Back exam: Present: normal inspection, full ROM, other (ambulates without any difficulties). Absent: tenderness, muscle spasm, paraspinal tenderness, vertebral tenderness, rash noted - Neurological Exam Neurological exam: Present: alert, oriented X3, normal gait - Psychiatric Psychiatric exam: Present: anxious - Skin Skin exam: Present: warm, dry, intact, normal color. Absent: rash ED Course Vital Signs 09/30/19 10/01/19 10/01/19 23:23 02:35 03:30 Temperature 98.6 F Pulse Rate 120 H 84 Pulse Rate [ 126 H Bilateral Throughout] Respiratory 18 20 Rate Respiratory 18 Rate [Bilateral Throughout] Blood Pressure 140/93 134/81 O2 Sat by Pulse 98 98 Oximetry - Reevaluation(s) Reevaluation #1: 10/01/19 03:47 Patient received albuterol in triage area upon arrival for wheezing. She still very wheezy and she is to receive Atrovent and Xopenex. Reevaluation #2: 10/01/19 03:47 Patient received Atrovent and Xopenex in emergency room 1.26 mg and one milligrams along with Solu-Medrol 125 mg. Her lung sounds better and she says she feels a lot better. Patient will be discharged home with prescription for albuterol inhaler, nebulizer and steroid. Her vital signs are stable and she is afebrile and in no acute distress. Patient did refuse chest x-ray and said that she did not need it. ED Medical Decision Making - Medical Decision Making This is a 38-year-old female here for wheezing and cough and requested that her medication is out for asthma. Patient says she has asthma or bronchitis and she is out of her albuterol inhaler nebulizer and she is not steroid. Patient received nebulizer treatment in emergency room. She came to emergency room and she was irate for moment but she calmed down. After nebulizer treatment lung sounds better and she says she feels better she was also given steroids injection. Patient refuses x-ray and I discussed with her that x-rays to check for pneumonia or any kind abnormality noted lung but she said she knows when she had that she does not want to have an x-ray. I discussed with her she change her mind or if she feels worse then she needs to return to emergency room otherwise patient discharged home with prescription for albuterol nebulizer, inhaler and prednisone Dosepak. She does have albuterol machine at home. - Differential Diagnosis PNA, bronchitis, asthma, URI cough and congestion Critical care attestation.: If time is entered above; I have spent that time in minutes in the direct care of this critically ill patient, excluding procedure time. ED Disposition Clinical Impression: Asthma with bronchitis, Cough in adult Disposition: DC-01 TO HOME OR SELFCARE Is pt being admited?: No Does the pt Need Aspirin: No Condition: Stable Instructions: Asthma (ED) Additional Instructions: These are transient emergency room if his symptoms return otherwise follow-up with her primary care physician and if he do not have a primary care physician follow-up at [facility]. Take medication as prescribed. Prescriptions: Prednisone [predniSONE 10 mg (6-Day Pack, 21 Tabs)] 10 mg PO .TAPER #1 tab.ds.pk ALBUTEROL Inhaler (OR & NICU) [ProAir HFA Inhaler] 2 puff IH Q6H PRN #1 inhalation PRN Reason: wheezing and cough ALBUTEROL NEB's [Proventil 0.083% NEBS] 2.5 mg IH Q6H #1 box Referrals: [facility] [Outside] - 10/02/19 Forms: Work/School Release Form(ED)
[2019-10-01 03:32] VITALS: BP 134/81
== END 2019-10-01 04:20 | disposition home or self-care (01) ==
LOC: ED 23:16
DX: J45.909 Unspecified asthma, uncomplicated (principal); Z79.899 Other long term (current) drug therapy; Z88.0 Allergy status to penicillin; Z88.1 Allergy status to other antibiotic agents
CPT/HCPCS: 94640; 96372; 99283; J2930; 94644

== ENCOUNTER 2020-09-01 05:53 | Observation (INO) | payer MEDICAID ==
[2020-09-01] MEDS ORDERED: IPRATROPIUM 0.02% NEBU 2.5 ML IH ONE ×2 (06:02→06:09)
[2020-09-01] MEDS ORDERED: ALBUTEROL 2.5 MG/3 ML NEBU IH ONE ×3 (06:03→09:05)
[2020-09-01] MEDS ORDERED: MAGNESIUM SULFATE 2 GM/50 ML BAG IV ONE ×2 (06:16→06:18)
[2020-09-01] MEDS ORDERED: methylPREDNISolone Sod Succinate 125 MG/2 ML INJ ONE (06:16)
[2020-09-01] MEDS ORDERED: methylPREDNISolone Sod Succinate 125 MG/2 ML INJ IV ONE (06:19)
[2020-09-01 07:58] LABS: Basophils % (Auto) 0.6 % (0.0-1.8); Eosinophils # (Auto) 0.6 K/mm3 (0.0-0.4); Eosinophils % (Auto) 8.1 % (0.0-4.3); Hematocrit 36.9 % (30.3-42.9); Hemoglobin 11.6 gm/dl (10.1-14.3); Lymphocytes # (Auto) 1.7 K/mm3 (1.2-5.4); Mean Corpuscular HGB Conc 32 % (30-34); Monocytes # (Auto) 0.3 K/mm3 (0.0-0.8); Monocytes % (Auto) 3.9 % (0.0-7.3); Platelet Count 286 K/mm3 (140-440); Red Blood Count 5.36 M/mm3 (3.65-5.03)
--- NOTE | 2020-09-01 08:00 | XRay Report ---
CHEST 1 VIEW INDICATION: cough, sob COMPARISON: 07/21/2018 FINDINGS: Support devices: None Heart: Normal Lungs/Pleura: No acute pulmonary or pleural findings. IMPRESSION: 1. No acute disease and no interval change. Signer Name: Edson Rivera MD Signed: 09/01/2020 7:56 AM Workstation Name: [id number]
[2020-09-01 08:04] LABS: Mean Corpuscular Volume 69 fl (79-97); Red Cell Distribution Width 20.1 % (13.2-15.2)
[2020-09-01 08:31] LABS: BUN/Creatinine Ratio 10; Blood Urea Nitrogen 8 mg/dL (7-17); Calcium 9.3 mg/dL (8.4-10.2); Hemolysis Index 5
--- NOTE | 2020-09-01 09:09 | Emergency Department Report ---
ED Asthma HPI - General Chief Complaint: Adult Asthma Stated Complaint: NANCY Time Seen by Provider: 09/01/20 07:23 Source: patient Mode of arrival: Ambulatory Limitations: No Limitations - History of Present Illness Initial Comments: 39-year-old female with a past medical history of asthma without previous intubation presents to the hospital with complaints of wheezing, cough, and shortness of breath since yesterday. Symptoms not improved with inhalers. She complains of occasional productive cough. She denies fever, loss of taste or smell. She has been negative for COVID in the past but has not had a test in the last 2 weeks. - Related Data Previous Rx's Medication Instructions Recorded Last Taken Type Ciprofloxacin HCl [Ciprofloxacin 500 mg PO Q12H #10 tab 07/21/18 Unknown Rx TAB] Ipratropium [Atrovent NEB] 0.5 mg IH Q8HRT #1 box 07/21/18 Unknown Rx Acetaminophen/Codeine [Tylenol 1 tab PO Q6H PRN #12 tab 09/22/18 Unknown Rx /Codeine # 3 tab] Chlorhexidine Mouthwash [Peridex] 15 ml MM BID #1 bottle 09/22/18 Unknown Rx Clindamycin [Clindamycin CAP] 300 mg PO Q8H #21 cap 09/22/18 Unknown Rx ALBUTEROL NEB's [Proventil 0.083% 2.5 mg IH Q6H #1 box 10/01/19 Unknown Rx NEBS] Albuterol Mdi (or & Nicu Only) 2 puff IH Q6H PRN #1 inhalation 10/01/19 Unknown Rx [ProAir HFA Inhaler] Prednisone [predniSONE 10 mg 10 mg PO .TAPER #1 tab.ds.pk 10/01/19 Unknown Rx (6-Day Pack, 21 Tabs)] Allergies Allergy/AdvReac Type Severity Reaction Status Date / Time amoxicillin Allergy Hives Verified 05/01/16 11:39 Penicillins Allergy Hives Verified 05/01/16 11:39 ED Review of Systems ROS: Stated complaint: NANCY Other details as noted in HPI ED Past Medical Hx - Past Medical History Previous Medical History?: Yes Hx Hypertension: No Hx Psychiatric Treatment: No Hx Asthma: Yes Additional medical history: BRONCHITIS - Surgical History Past Surgical History?: Yes Additional Surgical History: - Social History Smoking Status: Never Smoker Substance Use Type: None - Medications Home Medications: Home Medications Medication Instructions Recorded Confirmed Last Taken Type Ciprofloxacin HCl [Ciprofloxacin 500 mg PO Q12H #10 tab 07/21/18 Unknown Rx TAB] Ipratropium [Atrovent NEB] 0.5 mg IH Q8HRT #1 box 07/21/18 Unknown Rx Acetaminophen/Codeine [Tylenol 1 tab PO Q6H PRN #12 tab 09/22/18 Unknown Rx /Codeine # 3 tab] Chlorhexidine Mouthwash [Peridex] 15 ml MM BID #1 bottle 09/22/18 Unknown Rx Clindamycin [Clindamycin CAP] 300 mg PO Q8H #21 cap 09/22/18 Unknown Rx ALBUTEROL NEB's [Proventil 0.083% 2.5 mg IH Q6H #1 box 10/01/19 Unknown Rx NEBS] Albuterol Mdi (or & Nicu Only) 2 puff IH Q6H PRN #1 inhalation 10/01/19 Unknown Rx [ProAir HFA Inhaler] Prednisone [predniSONE 10 mg 10 mg PO .TAPER #1 tab.ds.pk 10/01/19 Unknown Rx (6-Day Pack, 21 Tabs)] ED Physical Exam - General Limitations: No Limitations - Other Other exam information: General: Moderate respiratory distress Head: Atraumatic Eyes: normal appearance ENT: Moist mucous membranes Neck: Normal appearance, no midline tenderness Chest: Tachypneic, wheezing, fair air movement, placed on BiPAP shortly after arrival CV: Regular rate and rhythm Abdomen: Soft, normal bowel sounds, nontender, nondistended, no rebound or guarding Back: Normal inspection Extremity: Normal inspection, full range of motion, no calf tenderness or leg edema Neuro: Alert O x 3, no facial asymmetry, speech clear, no gross motor sensory deficit Psych: Appropriate behavior Skin: No rash ED Course Vital Signs 09/01/20 09/01/20 09/01/20 06:04 06:10 06:20 Temperature 98.1 F Pulse Rate 133 H 119 H Pulse Rate [ 125 H Bilateral Throughout] Respiratory 20 29 H Rate Respiratory 28 H Rate [Bilateral Throughout] Blood Pressure Blood Pressure 170/105 155/99 [Left] O2 Sat by Pulse 100 100 Oximetry 09/01/20 09/01/20 07:07 08:55 Temperature Pulse Rate 123 H Pulse Rate [ Bilateral Throughout] Respiratory 29 H 24 Rate Respiratory Rate [Bilateral Throughout] Blood Pressure 190/144 Blood Pressure [Left] O2 Sat by Pulse 100 100 Oximetry ED Medical Decision Making - Lab Data Result diagrams: 09/01/20 07:37 09/01/20 07:37 Lab Results 09/01/20 09/01/20 09/01/20 Range/Units 07:37 07:37 07:37 WBC 7.6 (4.5-11.0) K/mm3 RBC 5.36 H (3.65-5.03) M/mm3 Hgb 11.6 (10.1-14.3) gm/dl Hct 36.9 (30.3-42.9) % MCV 69 L (79-97) fl MCH 22 L (28-32) pg MCHC 32 (30-34) % RDW 20.1 H (13.2-15.2) % Plt Count 286 (140-440) K/mm3 Lymph % (Auto) 23.0 (13.4-35.0) % [place] % (Auto) 3.9 (0.0-7.3) % Eos % (Auto) 8.1 H (0.0-4.3) % Baso % (Auto) 0.6 (0.0-1.8) % Lymph # (Auto) 1.7 (1.2-5.4) K/mm3 [place] # (Auto) 0.3 (0.0-0.8) K/mm3 Eos # (Auto) 0.6 H (0.0-0.4) K/mm3 Baso # (Auto) 0.0 (0.0-0.1) K/mm3 Seg Neutrophils % 64.4 (40.0-70.0) % Seg Neutrophils # 4.9 (1.8-7.7) K/mm3 Sodium 142 (137-145) mmol/L Potassium 4.0 (3.6-5.0) mmol/L Chloride 106.0 (98-107) mmol/L Carbon Dioxide 20 L (22-30) mmol/L Anion Gap 20 mmol/L BUN 8 (7-17) mg/dL Creatinine 0.8 (0.6-1.2) mg/dL Estimated GFR > 60 ml/min BUN/Creatinine Ratio 10 % Glucose 116 H (65-100) mg/dL Calcium 9.3 (8.4-10.2) mg/dL NT-Pro-B Natriuret Pep 65.31 (0-450) pg/mL HCG, Qual Negative (Negative) - EKG Data -: EKG Interpreted by Me (LV[facility]) EKG shows normal: sinus rhythm, ST-T waves (No STEMI) Rate: tachycardia (123) - Radiology Data Radiology results: report reviewed CHEST 1 VIEW INDICATION: cough, sob COMPARISON: 07/21/2018 FINDINGS: Support devices: None Heart: Normal Lungs/Pleura: No acute pulmonary or pleural findings. IMPRESSION: 1. No acute disease and no interval change. - Medical Decision Making Patient with persistent asthma despite ED treatment of bronchodilators, Solu- Medrol, and magnesium. Patient requiring BiPAP support. Chest x-ray negative for acute findings. patient will be admitted to the hospital for status asthmaticus. Critical Care Time: Yes Critical care time in (mins) excluding proc time.: 35 Critical care attestation.: If time is entered above; I have spent that time in minutes in the direct care of this critically ill patient, excluding procedure time. ED Disposition Clinical Impression: Status asthmaticus Disposition: DC-09 OP ADMIT IP TO THIS HOSP Is pt being admited?: Yes Condition: Stable Time of Disposition: 09:09 (Dr. Loja)
[2020-09-01 11:54] VITALS: BP 162/102
== END 2020-09-01 14:06 | disposition left against medical advice (07) ==
LOC: ED 05:53 → IMCU 10:45
PROVIDERS: ADMIT Internal Medicine; ATTEND Internal Medicine
DX: J45.902 Unspecified asthma with status asthmaticus (principal); Z98.891 History of uterine scar from previous surgery
CPT/HCPCS: 36415; 71045; 80048; 83880; 84703; 85025; 93005; 94644; 96365; 96366; 96375; 99291; G0378; J2930; J3475

== ENCOUNTER 2021-08-23 14:40 | Emergency (ER) | payer MEDICAID, OTHER ==
--- NOTE | 2021-08-23 15:55 | Emergency Department Report ---
ED Shortness of Breath HPI - General Chief Complaint: Adult Asthma Stated Complaint: ASTHMA Time Seen by Provider: 08/23/21 15:45 Source: patient Mode of arrival: Ambulatory Limitations: No Limitations - History of Present Illness Initial Comments: 40-year-old female, history of asthma, currently 14 weeks , presents to ED with asthma exacerbation. Patient reports wheezing x1 week. She states she does not have any inhalers or nebulizer at home. Patient denies any cough or fever. She denies any loss of smell or taste. Patient has not received a COVID-19 vaccine. Patient states she was tested for COVID-[address] [facility] this morning, but has not yet received the test results. MD Complaint: shortness of breath -: week(s) (1) Severity: moderate Consistency: constant Improves With: rest Worsens With: exertion Known History Of: asthma Treatments Prior to Arrival: none - Related Data Home Oxygen Therapy: No Previous Rx's Medication Instructions Recorded Last Taken Type Ciprofloxacin HCl [Ciprofloxacin 500 mg PO Q12H #10 tab 07/21/18 Unknown Rx TAB] Ipratropium [Atrovent NEB] 0.5 mg IH Q8HRT #1 box 07/21/18 Unknown Rx Acetaminophen/Codeine [Tylenol 1 tab PO Q6H PRN #12 tab 09/22/18 Unknown Rx /Codeine # 3 tab] Chlorhexidine Mouthwash [Peridex] 15 ml MM BID #1 bottle 09/22/18 Unknown Rx Clindamycin [Clindamycin CAP] 300 mg PO Q8H #21 cap 09/22/18 Unknown Rx ALBUTEROL NEB's [Proventil 0.083% 2.5 mg IH Q6H #1 box 10/01/19 Unknown Rx NEBS] Albuterol Mdi (or & Nicu Only) 2 puff IH Q6H PRN #1 inhalation 10/01/19 Unknown Rx [ProAir HFA Inhaler] Albuterol Mdi (or & Nicu Only) 2 puff IH QID PRN #1 gram 09/01/20 Unknown Rx [ProAir HFA Inhaler] Fluticasone/Salmeterol [Advair 1 each IH BID #1 blst.w.dev 09/01/20 Unknown Rx 250-50 Diskus] Prednisone [predniSONE 10 mg 10 mg PO .TAPER #1 tab.ds.pk 09/01/20 Unknown Rx (6-Day Pack, 21 Tabs)] Albuterol Sulfate [Proventil Hfa] 2 puff IH Q4HR PRN #1 hfa.aer.ad 08/23/21 Unknown Rx predniSONE [Deltasone] 50 mg PO QDAY #5 tab 08/23/21 Unknown Rx Allergies Allergy/AdvReac Type Severity Reaction Status Date / Time amoxicillin Allergy Hives Verified 05/01/16 11:39 Penicillins Allergy Hives Verified 05/01/16 11:39 ED Review of Systems ROS: Stated complaint: ASTHMA Other details as noted in HPI Comment: All other systems reviewed and negative Constitutional: denies: fever Respiratory: shortness of breath, wheezing ED Past Medical Hx - Past Medical History Previous Medical History?: Yes Hx Hypertension: No Hx Psychiatric Treatment: No Hx Asthma: Yes Additional medical history: BRONCHITIS - Surgical History Past Surgical History?: Yes Additional Surgical History: - Social History Smoking Status: Never Smoker Substance Use Type: Alcohol - Medications Home Medications: Home Medications Medication Instructions Recorded Confirmed Last Taken Type Ciprofloxacin HCl [Ciprofloxacin 500 mg PO Q12H #10 tab 07/21/18 Unknown Rx TAB] Ipratropium [Atrovent NEB] 0.5 mg IH Q8HRT #1 box 07/21/18 Unknown Rx Acetaminophen/Codeine [Tylenol 1 tab PO Q6H PRN #12 tab 09/22/18 Unknown Rx /Codeine # 3 tab] Chlorhexidine Mouthwash [Peridex] 15 ml MM BID #1 bottle 09/22/18 Unknown Rx Clindamycin [Clindamycin CAP] 300 mg PO Q8H #21 cap 09/22/18 Unknown Rx ALBUTEROL NEB's [Proventil 0.083% 2.5 mg IH Q6H #1 box 10/01/19 Unknown Rx NEBS] Albuterol Mdi (or & Nicu Only) 2 puff IH Q6H PRN #1 inhalation 10/01/19 Unknown Rx [ProAir HFA Inhaler] Albuterol Mdi (or & Nicu Only) 2 puff IH QID PRN #1 gram 09/01/20 Unknown Rx [ProAir HFA Inhaler] Fluticasone/Salmeterol [Advair 1 each IH BID #1 blst.w.dev 09/01/20 Unknown Rx 250-50 Diskus] Prednisone [predniSONE 10 mg 10 mg PO .TAPER #1 tab.ds.pk 09/01/20 Unknown Rx (6-Day Pack, 21 Tabs)] Albuterol Sulfate [Proventil Hfa] 2 puff IH Q4HR PRN #1 hfa.aer.ad 08/23/21 Unknown Rx predniSONE [Deltasone] 50 mg PO QDAY #5 tab 08/23/21 Unknown Rx ED Physical Exam - General Limitations: No Limitations General appearance: alert, in no apparent distress - Head Head exam: Present: atraumatic, normocephalic - Eye Eye exam: Present: normal appearance, EOMI - ENT ENT exam: Present: mucous membranes moist - Neck Neck exam: Present: normal inspection - Respiratory Respiratory exam: Present: wheezes - Cardiovascular Cardiovascular Exam: Present: normal rhythm, tachycardia - GI/Abdominal GI/Abdominal exam: Present: soft. Absent: tenderness - Extremities Exam Extremities exam: Present: normal inspection - Neurological Exam Neurological exam: Present: alert, oriented X3 - Psychiatric Psychiatric exam: Present: normal affect, normal mood - Skin Skin exam: Present: warm, dry, intact, normal color ED Course Vital Signs 08/23/21 08/23/21 08/23/21 15:30 17:14 18:47 Temperature 98.5 F 97.5 F L Pulse Rate 107 H 98 H Pulse Rate [ 92 H Anterior Bilateral Throughout] Respiratory 22 18 Rate Respiratory 16 Rate [Anterior Bilateral Throughout] Blood Pressure 128/84 Blood Pressure 125/78 [Left] O2 Sat by Pulse 97 100 Oximetry - Reevaluation(s) Reevaluation #1: 08/23/21 17:05 Patient still has a residual wheezing. Will order another albuterol 5 mg neb. Reevaluation #2: 08/23/21 18:28 Patient is feeling much better at this time. Only minimal scattered wheezing present. Patient feels comfortable with discharge home. ED Medical Decision Making - Medical Decision Making 40-year-old female, history of asthma, presents to ED with wheezing and shortness of breath x1 week. Patient denies any cough, fever, loss of smell or taste, vomiting, diarrhea, body aches. Patient states she did get tested this morning at [facility], but has not yet received her test results. Patient with some moderate wheezing on exam. Patient given prednisone and albuterol nebulizer. Patient feeling much better at this time. Patient has not been hypoxic during her ED stay. Vitals are stable. She feels comfortable with discharge home. Prescriptions given, outpatient follow-up advised, return precautions given. - Differential Diagnosis Asthma, COVID-19 Critical care attestation.: If time is entered above; I have spent that time in minutes in the direct care of this critically ill patient, excluding procedure time. ED Disposition Clinical Impression: Acute asthma exacerbation Disposition: HOME / SELF CARE / HOMELESS Is pt being admited?: No Condition: Stable Instructions: Asthma Attack Prescriptions: predniSONE [Deltasone] 50 mg PO QDAY #5 tab Albuterol Sulfate [Proventil Hfa] 2 puff IH Q4HR PRN #1 hfa.aer.ad PRN Reason: Wheezing Referrals: PRIMARY CARE, [Primary Care Provider] - 3-5 Days Forms: Work/School Release Form(ED) Time of Disposition: 18:29
[2021-08-23] MEDS: predniSONE 20 MG TAB PO ONE (16:17)
[2021-08-23] MEDS: ALBUTEROL 2.5 MG/3 ML NEBU IH ONE ×2 (16:23→17:14)
[2021-08-23] MEDS: IPRATROPIUM 0.02% NEBU 2.5 ML IH ONE (16:25)
[2021-08-23] MEDS ORDERED: ALBUTEROL 2.5 MG/3 ML NEBU IH ONE (17:00)
[2021-08-23 18:48] VITALS: BP 125/78
== END 2021-08-23 18:47 | disposition home or self-care (01) ==
LOC: ED 14:40
DX: J45.901 Unspecified asthma with (acute) exacerbation (principal); Z98.890 Other specified postprocedural states; Z88.0 Allergy status to penicillin
CPT/HCPCS: 94640; 99283; J7512; 94644

== ENCOUNTER 2022-01-21 09:29 | Outpatient (CLI) | payer OTHER | END 2022-01-21 09:30 | disposition home or self-care (01) | LOC: PF 09:29 | PROVIDERS: ATTEND Internal Medicine | DX: J45.909 Unspecified asthma, uncomplicated (principal); J40 Bronchitis, not specified as acute or chronic | CPT/HCPCS: 94010; 94729 ==